=== PATIENT | male | born 1980 | race Caucasian/White ===

== ENCOUNTER 2016-03-12 11:14 | Emergency (ER) | payer OTHER ==
[2016-03-12 11:26] VITALS: BP 132/72
[2016-03-12] MEDS ORDERED: ALBUTEROL SULFATE/IPRATROPIUM 3 ML NEBU IH ONE ×2 (11:44→12:12)
[2016-03-12] MEDS ORDERED: METHYLPREDNISOLONE SOD SUCC/PF 40 MG/ML VIAL IM ONE (11:44)
[2016-03-12] MEDS ORDERED: METHYLPREDNISOLONE SOD SUCC/PF 40 MG/ML VIAL ONE (12:11)
--- NOTE | 2016-03-12 12:27 | ERNOTE ---
Date of Service: 03/12/16 Time Seen by Provider: 03/12/16 11:44 Stated Complaint: COLD Presenting Symptoms:: cough Source: patient Exam Limitations: no limitations Immunizations: IMMUNIZATION HX Immunizations Up to Date Yes History of Influenza Vaccine No Hx Pneumococcal Vaccination No Allergies/Adverse Reactions: Allergies Tetanus Vaccines & Toxoid [Tetanus] Adverse Reaction (Intermediate, Verified 11:26) fever, hives and swelling at injection site Home Medications: HOME MEDICATIONS Albuterol Sulfate [Proair Hfa] 1 - 2 puff IH Q4H PRN #1 inhaler 03/12/16 [Last Taken Unknown] Azithromycin [Zithromax] 500 mg PO NOW #6 tab 03/12/16 [Last Taken Unknown] Benzonatate [Tessalon Perle] 100 mg PO TID #30 capsule 03/12/16 [Last Taken Unknown] predniSONE [Prednisone] 1 tab PO TID #5 tab 03/12/16 [Last Taken Unknown] - History of Present Ilness Narrative: Patient comes due to a dry cough since a couple of days. Timing: intermittent Severity: mild Frequency/Possible Cause: Reports: no prior episodes Modifying Factors - Improves: Reports: nothing Modifying Factors - Worsens: Reports: coughing Associated Symptoms: Reports: cough - No sputum, wheezing, fever/chills Prior Treatment: Denies: recently seen Review of Systems - Review of Systems Constitutional: Present: fever, chills, malaise EYE: Present: no symptoms reported ENT: Present: no symptoms reported Respiratory: Present: cough - dry coughing, wheezing. Absent: shortness of breath Cardiology: Absent: syncope, edema, claudication Gastrointestinal/Abdominal: Present: no symptoms reported Genitourinary: Present: no symptoms reported Musculoskeletal: Present: no symptoms reported Skin: Present: no symptoms reported Neurological: Present: no symptoms reported Endocrine: Present: no symptoms reported Hematologic/Lymphatic: Present: no symptoms reported Psych: Present: no symptoms reported - Patient's Past Medical History Patient History - Medical: No pertinent hx Patient History - Cardiac/Respiratory: No pertinent hx Patient History - Cancer: No Hx of Cancer Patient History - Surgical Procedures: Appendectomy - Family History Mother Family History - Medical: No pertinent hx, Diabetes Type 1 Family History - Cardiac/Respiratory: History Unknown - Social History Living Situations: home Does anyone smoke in the home?: Yes Smoking Status: Current every day smoker Have you smoked in the past 12 months: Yes Alcohol Use: none Drug Use: none Physical Exam - Physical Exam General Appearance: Present: wd/wn, alert, no apparent distress Eye Exam: Normal inspection: bilateral, PERRL: bilateral, EOMI: bilateral Ears, Nose, Throat: Present: normal ENT inspection, hearing grossly normal, normal pharynx Neck: Present: normal inspection, nontender Respiratory: Present: rhonchi - scattered, wheezing - mild scattered. Absent: respiratory distress, accessory muscle use Cardiovascular/Chest: Present: regular rate, rhythm, no murmur, normal peripheral pulses Peripheral Pulses: N=norm/S=strong/W=weak/B=bound/A=absent: Carotid (R): Normal , Carotid (L): Normal, Femoral (R): Normal, Femoral (L): Normal, Dorsalis-pedis (R): Normal, Dorsalis-pedis (L): Normal Gastrointestinal/Abdominal: Present: normal bowel sounds, nontender, nondistended, soft, no organomegaly Male Genitals Exam: Present: normal genitalia, normal prostate, no hernia Back Exam: Present: normal inspection, normal range of motion, no CVA tenderness , no vertebral tenderness Extremity Exam: Present: normal inspection, non-tender, no edema, normal range of motion Neurological Exam: Present: alert, oriented, normal mood/affect, no motor/ sensory deficits Skin Exam: Present: normal color, warm/dry Lymphatic Exam: Present: no adenopathy ED Progress - Results and Orders Patient's Lab Results:: I have reviewed the patient's lab results. Results and Orders: Negative Flu - Vital Signs Patient's Vital Signs:: I have reviewed the patient's vital signs. Vital Signs: Vital Signs 03/12/16 03/12/16 03/12/16 11:14 11:24 12:13 Temperature 36.6 C 35.5 C L Pulse Rate 87 87 Respiratory 14 15 Rate Blood Pressure 110/61 132/72 O2 Sat by Pulse 97 98 Oximetry - X-Ray X-Ray #1 X-Ray: chest X-ray Comments: RML Pneumonia could be possible - Progress/Reassessment Chief Complaint: Cough Progress:: Re-examined - Transfer of Care Expected Disposition: Discharge Additional Notes: Patient with a very low CAP Score Departure - Departure Clinical Impression: Pneumonia Qualifiers: Pneumonia type: due to unspecified organism Laterality: right Lung location: unspecified part of lung Qualified Code(s): J18.9 - Pneumonia, unspecified organism Disposition: Home self-care Condition: Stable Instructions: Pneumonia, Child Prescriptions: Albuterol Sulfate [Proair Hfa] 1 - 2 puff IH Q4H PRN #1 inhaler PRN Reason: Shortness Of Breath Azithromycin [Zithromax] 500 mg PO NOW #6 tab Benzonatate [Tessalon Perle] 100 mg PO TID #30 capsule predniSONE [Prednisone] 1 tab PO TID #5 tab
[2016-03-12] MEDS ORDERED: AZITHROMYCIN 250 MG TABLET PO ONE (12:52)
[2016-03-12] MEDS ORDERED: AZITHROMYCIN 250 MG TABLET ONE (13:04)
== END 2016-03-12 13:12 | disposition home or self-care (01) ==
LOC: ER 11:14
DX: J18.9 Pneumonia, unspecified organism (principal); F17.200 Nicotine dependence, unspecified, uncomplicated

== ENCOUNTER 2016-10-26 15:47 | Emergency (ER) | payer OTHER ==
[2016-10-26 16:04] VITALS: BP 118/71
[2016-10-26] MEDS ORDERED: NAPROXEN SODIUM 550 MG TABLET PO ONE (17:07)
--- NOTE | 2016-10-26 17:09 | ERNOTE ---
Lower Extremity HPI - General Lower Extremities Pain: foot: right Time Seen by Provider: 10/26/16 16:07 Source: patient Exam Limitations: no limitations - Immun/Allergies/Home Medications Immunizations: IMMUNIZATION HX Immunizations Up to Date Yes History of Influenza Vaccine No Hx Pneumococcal Vaccination No Allergies/Adverse Reactions: Allergies Allergy/AdvReac Type Severity Reaction Status Date / Time Tetanus Vaccines and Toxoid AdvReac Intermediate fever, Verified 10/26/16 16:04 [Tetanus] hives and swelling at injection site Home Medications: HOME MEDICATIONS Naproxen [Naprosyn] 500 mg PO BID #60 tablet 10/26/16 [Last Taken Unknown] - History of Present Illness Narrative: Patient dropped a tool box on his foot today and knows considerable pain at approximately the third and fourth metatarsal area on the right. He rates the pain is at least moderate in intensity. Occurred: just prior to arrival Location of Incident: home Method of Injury: Reports: direct blow Loss of Consciousness: Reports: no loss of consciousness Associated Symptoms: Reports: unable to bear weight - painful to bear weight Other Injuries: Reports: none Review of Systems - Review of Systems Constitutional: Present: See HPI EYE: Present: no symptoms reported ENT: Present: no symptoms reported Respiratory: Present: no symptoms reported Cardiology: Present: no symptoms reported Gastrointestinal/Abdominal: Present: no symptoms reported Genitourinary: Present: no symptoms reported Musculoskeletal: Present: See HPI Skin: Present: no symptoms reported Neurological: Present: no symptoms reported Endocrine: Present: no symptoms reported Hematologic/Lymphatic: Present: no symptoms reported Psych: Present: no symptoms reported - Patient's Past Medical History Patient History - Medical: No pertinent hx Patient History - Cardiac/Respiratory: No pertinent hx Patient History - Cancer: No Hx of Cancer Patient History - Surgical Procedures: Appendectomy Patient History - Other: None - Family History Mother Family History - Medical: No pertinent hx, Diabetes Type 1 Family History - Cardiac/Respiratory: History Unknown - Social History Living Situations: home Abuse History: No History of abuse Psych History: No pertinent hx, Current tx/ever been on anti-depressants or anti -anxiety meds Does anyone smoke in the home?: Yes Smoking Status: Current every day smoker Have you smoked in the past 12 months: Yes Alcohol Use: none Drug Use: none - Immunizations Immunizations Up to Date: Yes Hx Pneumococcal Vaccination: No History of Influenza Vaccine: No Physical Exam - Physical Exam General Appearance: Present: wd/wn, alert, moderate distress Head Exam: Present: normal inspection Eye Exam: Normal inspection: bilateral, PERRL: bilateral Ears, Nose, Throat: Present: normal ENT inspection, H, normal pharynx Neck: Present: normal inspection, nontender Respiratory: Present: no respiratory distress, normal breath sounds, no accessory muscle use, chest nontender, lungs clear Cardiovascular/Chest: Present: regular rate, rhythm, no murmur, normal peripheral pulses Gastrointestinal/Abdominal: Present: normal bowel sounds, nontender, nondistended, soft, no organomegaly Rectal Exam: Present: deferred Back Exam: Present: normal inspection, normal range of motion Extremity Exam: Present: decreased range of motion, bony tenderness, joint swelling Neurological Exam: Present: alert, oriented, normal mood/affect Skin Exam: Present: normal color, warm/dry Lymphatic Exam: Present: no adenopathy ED Progress - Vital Signs Patient's Vital Signs:: I have reviewed the patient's vital signs. Vital Signs: Vital Signs 10/26/16 16:01 Temperature 37.1 C Pulse Rate 83 Respiratory 16 Rate Blood Pressure 118/71 O2 Sat by Pulse 98 Oximetry - X-Ray X-Ray #1 X-Ray: foot Interpretation: Reviewed by me - Progress/Reassessment Chief Complaint: Foot Injury/Pain Plan - Plan Plan: Patient will be offered a postop shoe and sent home with a prescription for Naprosyn and he will follow up with family physician as needed. Departure Clinical Impression: Foot contusion Qualifiers: Encounter type: initial encounter Laterality: right Qualified Code(s): S90.31XA - Contusion of right foot, initial encounter - Departure Disposition: Home self-care Condition: Good Instructions: Foot Contusion, [id number] Prescriptions: Naproxen [Naprosyn] 500 mg PO BID #60 tablet
[2016-10-26] MEDS ORDERED: NAPROXEN SODIUM 550 MG TABLET ONE (17:15)
== END 2016-10-26 17:30 | disposition home or self-care (01) ==
LOC: ER 15:47
DX: S90.31XA Contusion of right foot, initial encounter (principal); X58.XXXA Exposure to other specified factors, initial encounter; Y93.9 Activity, unspecified; Y92.9 Unspecified place or not applicable; Y99.9 Unspecified external cause status; F17.200 Nicotine dependence, unspecified, uncomplicated